=== PATIENT | male | born 1955 | race Caucasian/White ===

== ENCOUNTER 2017-05-18 04:02 | Emergency (ER) | payer SELFPAY ==
[2017-05-18] MEDS ORDERED: Albuterol/Ipratropium 3.0-0.5 MG/3 ML Neb Soln NEB ONE (04:44)
--- NOTE | 2017-05-18 04:44 | EDM.PDOC ---
ED HPI GENERAL MEDICAL PROBLEM - General Chief Complaint: Respiratory Problem Stated Complaint: FEVER, LIGHT HEADED, SHORTNESS OF BREATH Time Seen by Provider: 05/18/17 04:43 Source of Information: Reports: Patient - History of Present Illness INITIAL COMMENTS - FREE TEXT/NARRATIVE: HISTORY AND PHYSICAL: History of present illness: [Patient with persistent cough increasing in severity over the last week, fever today no chills or sweats no chest pain shortness breath headache dizziness palpitation about a urine symptoms productive cough ] Review of systems: As per history of present illness and below otherwise all systems reviewed and negative. Past medical history: As per history of present illness and as reviewed below otherwise noncontributory. Surgical history: As per history of present illness and as reviewed below otherwise noncontributory. Social history: No reported history of drug or alcohol abuse. Family history: As per history of present illness and as reviewed below otherwise noncontributory. Physical exam: HEENT: Atraumatic, normocephalic, pupils reactive, negative for conjunctival pallor or scleral icterus, mucous membranes moist, throat clear, neck supple, nontender, trachea midline. Lungs: Clear to auscultation, breath sounds equal bilaterally, chest nontender. Post DuoNeb Heart: S1S2, regular, negative for clicks, rubs, or JVD. Abdomen: Soft, nondistended, nontender. Negative for masses or hepatosplenomegaly. Negative for costovertebral tenderness. Pelvis: Stable nontender. Genitourinary: Deferred. Rectal: Deferred. Extremities: Atraumatic, negative for cords or calf pain. Neurovascular unremarkable. Neuro: Awake, alert, oriented. Cranial nerves II through XII unremarkable. Cerebellum unremarkable. Motor and sensory unremarkable throughout. Exam nonfocal. Diagnostics: [CBC CMP UA blood cultures sputum culture ] Therapeutics: [Levaquin 500 mg by mouth now Levaquin 500 mg by mouth daily #10 no refill HFA Phenergan with codeine ] Patient offered admission he refuses wishing he returned to his hotel room for rest Impression: [Pneumonia] Definitive disposition and diagnosis as appropriate pending reevaluation and review of above. chest Pain Score (Numeric/FACES): 3 - Related Data Allergies Allergy/AdvReac Type Severity Reaction Status Date / Time No Known Allergies Allergy Verified 05/18/17 04:13 Home Meds: Home Meds Metoprolol Succinate [Toprol XL] 0 mg PO ASDIRECTED PRN 05/18/17 [History] Rosuvastatin [Crestor] 10 mg PO DAILY 05/18/17 [History] Past Medical History HEENT History: Reports: None Cardiovascular History: Reports: High Cholesterol, Hypertension Other Cardiovascular History: SVT, taking metoprolo PRN when he feel his heart is beating fast Musculoskeletal History: Reports: None - Past Surgical History HEENT Surgical History: Reports: Tonsillectomy Cardiovascular Surgical History: Reports: None Musculoskeletal Surgical History: Reports: Shoulder Surgery Social & Family History - Family History Family Medical History: Noncontributory - Tobacco Use Smoking Status *Q: Former Smoker Used Tobacco, but Quit: No Month Tobacco Last Used: "a year ago" - Caffeine Use Caffeine Use: Reports: Tea - Alcohol Use Days Per Week of Alcohol Use: 5 Number of Drinks Per Day: 2 Total Drinks Per Week: 10 - Recreational Drug Use Recreational Drug Use: No ED ROS GENERAL - Review of Systems Review Of Systems: ROS reveals no pertinent complaints other than HPI. ED EXAM, GENERAL - Physical Exam Exam: See Below Course - Vital Signs Last Recorded V/S: Last Vital Signs Temp 101.5 F H 05/18/17 04:58 Pulse 93 05/18/17 04:07 Resp 20 05/18/17 04:07 BP 190/102 H 05/18/17 04:07 Pulse Ox 95 05/18/17 04:07 - Orders/Labs/Meds Orders: Active Orders 24 hr Category Date Time Status RT Aerosol Therapy [RC] ASDIRECTED Care 05/18/17 04:44 Active Chest 2V [CR] Stat Exams 05/18/17 04:43 Taken COMPREHENSIVE METABOLIC PN,CMP [CHEM] Stat Lab 05/18/17 05:53 Received CULTURE BLOOD [BC] Stat Lab 05/18/17 05:53 Received CULTURE BLOOD [BC] Stat Lab 05/18/17 05:57 Received CULTURE SPUTUM + SMEAR [RM] Stat Lab 05/18/17 06:03 Uncollected Blood Culture x2 Reflex Set [OM.PC] Stat Oth 05/18/17 05:32 Ordered Labs: Laboratory Tests 05/18/17 05/18/17 Range/Units 04:10 05:53 WBC 13.36 H (4.0-11.0) K/uL RBC 5.33 (4.50-5.90) M/uL Hgb 16.3 (13.0-17.0) g/dL Hct 47.4 (38.0-50.0) % MCV 88.9 (80.0-98.0) fL MCH 30.6 (27.0-32.0) pg MCHC 34.4 (31.0-37.0) g/dL RDW Std Deviation 43.6 (28.0-62.0) fl RDW Coeff of Edson 13 (11.0-15.0) % Plt Count 157 (150-400) K/uL MPV 9.50 (7.40-12.00) fL Neut % (Auto) 83.6 H (48.0-80.0) % Lymph % (Auto) 8.2 L (16.0-40.0) % [place] % (Auto) 7.7 (0.0-15.0) % Eos % (Auto) 0.4 (0.0-7.0) % Baso % (Auto) 0.1 (0.0-1.5) % Neut # (Auto) 11.2 H (1.4-5.7) K/uL Lymph # (Auto) 1.1 (0.6-2.4) K/uL Bremer # (Auto) 1.0 H (0.0-0.8) K/uL Eos # (Auto) 0.1 (0.0-0.7) K/uL Baso # (Auto) 0.0 (0.0-0.1) K/uL Nucleated RBC % 0.0 /100WBC Nucleated RBCs # 0 K/uL Urine Color YELLOW Urine Appearance CLEAR Urine pH 6.0 (5.0-8.0) Ur Specific [place] 1.010 (1.001-1.035) Urine Protein TRACE (NEGATIVE) mg/dL Urine Glucose (UA) NEGATIVE (NEGATIVE) mg/dL Urine Ketones NEGATIVE (NEGATIVE) mg/dL Urine Occult Blood TRACE-LYSED (NEGATIVE) Urine Nitrite NEGATIVE (NEGATIVE) Urine Bilirubin NEGATIVE (NEGATIVE) Urine Urobilinogen 0.2 (<2.0) EU/dL Ur Leukocyte Esterase NEGATIVE (NEGATIVE) Urine RBC 0-1 (0-2/HPF) Urine WBC 0-1 (0-5/HPF) Ur Epithelial Cells NOT SEEN (NONE-FEW) Urine Bacteria RARE (NEGATIVE) Meds: Medications Discontinued Medications Generic Name Dose Route Start Last Admin Trade Name Kimmy PRN Reason Stop Dose Admin Acetaminophen 1,000 mg 05/18/17 04:47 05/18/17 04:58 Tylenol Extra Strength PO 05/18/17 04:48 1,000 mg ONETIME ONE Administration Albuterol/Ipratropium 3 ml 05/18/17 04:44 05/18/17 04:59 Duoneb 3.0-0.5 Mg/3 Ml NEB 05/18/17 04:45 3 ml ONETIME ONE Administration Departure - Departure Time of Disposition: 06:15 Disposition: Home, Self-Care 01 Condition: Good, Fair Clinical Impression: Pneumonia - Discharge Information Forms: ED Department Discharge Additional Instructions: The following information is given to patients seen in the emergency department who are being discharged to home. This information is to outline your options for follow-up care. We provide all patients seen in our emergency department with a follow-up referral. The need for follow-up, as well as the timing and circumstances, are variable depending upon the specifics of your emergency department visit. If you don't have a primary care physician on staff, we will provide you with a referral. We always advise you to contact your personal physician following an emergency department visit to inform them of the circumstance of the visit and for follow-up with them and/or the need for any referrals to a consulting specialist. The emergency department will also refer you to a specialist when appropriate. This referral assures that you have the opportunity for follow-up care with a specialist. All of these measure are taken in an effort to provide you with optimal care, which includes your follow-up. Under all circumstances we always encourage you to contact your private physician who remains a resource for coordinating your care. When calling for follow-up care, please make the office aware that this follow-up is from your recent emergency room visit. If for any reason you are refused follow-up, please contact the [facility] emergency department at and asked to speak to the emergency department charge nurse. - My Orders Last 24 Hours: My Active Orders 05/18/17 04:43 Chest 2V [CR] Stat 05/18/17 04:44 RT Aerosol Therapy [RC] ASDIRECTED 05/18/17 05:32 Blood Culture x2 Reflex Set [OM.PC] Stat 05/18/17 05:53 COMPREHENSIVE METABOLIC PN,CMP [CHEM] Stat CULTURE BLOOD [BC] Stat 05/18/17 05:57 CULTURE BLOOD [BC] Stat 05/18/17 06:03 CULTURE SPUTUM + SMEAR [RM] Stat - Assessment/Plan Last 24 Hours: My Active Orders 05/18/17 04:43 Chest 2V [CR] Stat 05/18/17 04:44 RT Aerosol Therapy [RC] ASDIRECTED 05/18/17 05:32 Blood Culture x2 Reflex Set [OM.PC] Stat 05/18/17 05:53 COMPREHENSIVE METABOLIC PN,CMP [CHEM] Stat CULTURE BLOOD [BC] Stat 05/18/17 05:57 CULTURE BLOOD [BC] Stat 05/18/17 06:03 CULTURE SPUTUM + SMEAR [RM] Stat
[2017-05-18] MEDS ORDERED: Acetaminophen 500 MG Tab PO ONE (04:47)
[2017-05-18] MEDS ORDERED: Levofloxacin 500 MG Tab PO ONE (06:16)
[2017-05-18 06:24] LABS: CHLORIDE,CL 105 mmol/L (98-110); SODIUM,NA 136 mmol/L (136-146)
--- NOTE | 2017-05-18 19:45 | CR ---
EXAM DATE: 05/18/17 PATIENT'S AGE: 61 Patient: ARPAN LEON Facility: [place], [place] Site . Site : [id number] Study: XRay Chest [id number]/22/2018 5:00:20 AM Ordering Physician: Miguelangel Hernandez Final Report: INDICATION: CP, SOB, cough TECHNIQUE: Chest 2 views COMPARISON: None FINDINGS: Cardiovascular and mediastinum: Heart size and vasculature are normal in caliber and appearance. Mediastinum is within normal limits. Lungs and pleural spaces: Left lower lobe consolidation. No sign of pleural effusion. No pneumothorax. Bones and soft tissues: No significant findings. IMPRESSION: Left lower lobe consolidation. Please correlate for signs of pneumonia Dictated by Kade Benoit MD @ 05/18/2017 5:58:12 AM Dictated by: Kade Benoit MD @ 05/18/2017 05:58:19 (Electronic Signature) Report Signed by Proxy. [facility]
== END 2017-05-18 06:42 | disposition home or self-care (01) ==
LOC: MW.ED 04:02
DX: J18.9 Pneumonia, unspecified organism (principal); E78.00 Pure hypercholesterolemia, unspecified; I10 Essential (primary) hypertension; Z79.899 Other long term (current) drug therapy; Z87.891 Personal history of nicotine dependence
CPT/HCPCS: 36415; 71046; 80053; 81001; 85025; 87040; 87070; 87205; 87804; 94640; 99284; A9270; 87077; 87186; 99283